=== PATIENT | male | born 1950 ===

== ENCOUNTER → 2018-04-13 | Outpatient (CLI) | payer MEDICARE, OTHER ==
[~2018-04-13] MED LIST: CALGLU500 PO; INSUASPI SC; INSULANI SC; METO50 PO; RISE35 PO; SULF500A PO; SULTRISS PO; TACR1 PO; [UNRECOGNIZED DRUG - OTHER]
[2018-04-13 11:26] LABS: Source, Urine Clean Catch
[2018-04-13 13:03] LABS: Appearance, Urine Clear (Clear); Bilirubin, Urine Neg (Neg); Blood, Urine 1+ (Neg); Color, Urine Yellow (P-Yellow); Glucose Qualitative, Urine Neg (Neg); Ketones, Urine Neg (Neg); Leukocyte Esterase, Urine Neg (Neg); Nitrite, Urine Neg (Neg); Protein, Urine 2+ (Neg); Urobilinogen, Urine NORM (Normal)
[2018-04-13 13:53] LABS: Bacteria Not Seen /hpf; Red Blood Cells, Urine 0-2 /hpf (0-2); Squamous Epithelial Cells Not Seen /hpf (Few); White Blood Cells, Urine Not Seen /hpf (0-5)
== END ==
LOC: LAB 11:25 → LAB SHORT 11:25
PROVIDERS: Urology
DX: R35.0 Frequency of micturition (principal)
CPT/HCPCS: 81001; 87086

== ENCOUNTER 2019-01-08 18:27 | Inpatient (IN) | payer MEDICARE, OTHER ==
[~2019-01-08] VITALS: Ht 175.3 cm; Wt 92.5 kg
[~2019-01-08 18:27] MED LIST changes: -INSUASPI SC; -INSULANI SC; +INSULANPEN SC; +METO25 PO; -METO50 PO; +Myfortic360 MG PO; +Novolog100 UNIT/1 SC; -[UNRECOGNIZED DRUG - OTHER]
[2019-01-08 19:05] LABS: BASOPHILS ABSOLUTE AUTO 0.04 K/mm3 (0.00-0.23); BASOPHILS PERCENT AUTO 1 % (0-2); EOSINOPHILS ABSOLUTE AUTO 0.05 K/mm3 (0.00-0.68); EOSINOPHILS PERCENT AUTO 1 % (0-6); Hematocrit 42.4 % (37.0-53.0); Hemoglobin 13.5 g/dL (13.5-17.5); IMMATURE GRAN ABSOLUTE AUTO 0.03 K/mm3 (0.00-0.10); IMMATURE GRAN PERCENT AUTO 1 % (0-1); LYMPHOCYTES ABSOLUTE AUTO 0.81 K/mm3 (0.84-5.20); LYMPHOCYTES PERCENT AUTO 14 % (21-46); MONOCYTES ABSOLUTE AUTO 0.32 K/mm3 (0.16-1.47); MONOCYTES PERCENT AUTO 6 % (4-13); Mean Corpuscular HGB 30.7 pg (26.0-34.0); Mean Corpuscular HGB Conc 31.8 g/dL (31.5-36.5); Mean Corpuscular Volume 96 fL (80-100); Mean Platelet Volume 11.8 fL (9.1-12.4); NEUTROPHILS ABSOLUTE AUTO 4.54 K/mm3 (1.96-9.15); NEUTROPHILS PERCENT AUTO 78 % (41-73); Platelet Count 132 K/mm3 (150-400); RDW Coefficient Variation 13.2 % (11.7-14.2); RDW Standard Deviation 47.3 fL (35.1-46.3); White Blood Cell Count 5.79 K/mm3 (4.00-11.30)
[2019-01-08 19:19] LABS: Alanine Aminotransfer (ALT/SGP 19 U/L (12-78); Albumin, Blood 3.5 g/dL (3.4-5.0); Alk Phos 82 U/L (50-136); Anion Gap 4 mmol/L (6-16); Aspartate Aminotrans (AST/SGOT 22 U/L (12-37); Bilirubin, Total 0.4 mg/dL (0.1-1.0); Blood Urea Nitrogen 28 mg/dL (8-24); Bun/Creatinine Ratio 26.9 (12.0-20.0); CO2, Blood 26 mmol/L (21-32); Calcium, Blood 8.9 mg/dL (8.5-10.1); Chloride, Blood 109 mmol/L (98-108); Creatinine, Blood 1.04 mg/dL (0.60-1.20); Globulin, Blood 3.4 g/dL (2.2-4.0); Glomerular Filtration Rate >60 (60-); Glucose, Blood 197 mg/dL (70-99); Potassium, Blood 4.5 mmol/L (3.5-5.5); Sodium, Blood 139 mmol/L (136-145); Total Protein, Blood 6.9 g/dL (6.4-8.2)
[2019-01-08 19:24] LABS: International Normalized Ratio 1.04
[2019-01-08] MEDS ORDERED: LOSA50 PO (19:37)
[2019-01-08] MEDS ORDERED: FISH OIL 1,001000 MG PO (19:38)
[2019-01-08] MEDS ORDERED: TURMERIC 500 M1 EACH PO (19:38)
[2019-01-08 19:50] LABS: Source, Urine Clean Catch
[2019-01-08 19:54] LABS: Bilirubin, Urine Neg (Neg); Blood, Urine 1+ (Neg); Glucose Qualitative, Urine Neg (Neg); Ketones, Urine Neg (Neg); Leukocyte Esterase, Urine Neg (Neg); Nitrite, Urine Neg (Neg); Protein, Urine 3+ (Neg); Urobilinogen, Urine NORM (Normal)
[2019-01-08 19:57] LABS: Appearance, Urine Clear (Clear); Color, Urine Yellow (P-Yellow)
[2019-01-08 20:02] LABS: Bacteria Few /hpf; Red Blood Cells, Urine 0-2 /hpf (0-2); Squamous Epithelial Cells Rare /hpf (Few); White Blood Cells, Urine 0-2 /hpf (0-5)
[2019-01-08 22:30] LABS: Free Thyroxine 1.07 ng/dL (0.70-1.60)
[2019-01-08 22:33] LABS: Thyroid Stimulating Hormone 0.924 uIU/mL (0.360-4.800)
[2019-01-08 23:33] LABS: Source, Urine Clean Catch
[2019-01-08 23:37] LABS: Appearance, Urine Clear (Clear); Bilirubin, Urine Neg (Neg); Blood, Urine Neg (Neg); Color, Urine Yellow (P-Yellow); Glucose Qualitative, Urine Neg (Neg); Ketones, Urine Neg (Neg); Leukocyte Esterase, Urine Neg (Neg); Nitrite, Urine Neg (Neg); Protein, Urine 2+ (Neg); Urobilinogen, Urine NORM (Normal); pH, Urine 6.5 (5.0-8.0)
[2019-01-08 23:43] LABS: Bacteria Mod /hpf; Red Blood Cells, Urine 0-2 /hpf (0-2); Squamous Epithelial Cells Not Seen /hpf (Few); White Blood Cells, Urine 0-2 /hpf (0-5)
[2019-01-08] MEDS ORDERED: VITAMIN D34000 UNIT PO (23:46)
--- NOTE | 2019-01-09 00:26 | NUR ---
2200: RTOOK REPORT AND PATIENT ARRIVED TO FLOOR, PATIENT ABLE TO STAND AND TAKE A FEW STEPS WITH A FWW AND X2 ASSIST BUT IN A WEAKEND STATE. PT VOIDED 250 HAZY YELLOW URINE AND SAMPLE SENT TO LAB FOR CX. POC FSBS = 159; PER PATIENT HE DOESNT TAKE SSI FOR THAT NUMBER AT HOME. PT ON REGULAR DIET PER ORDER AND WAS GIVEN 1/2 SANDWICH AND WATER. IVF STARTED. ASSESSMENTS COMPLETED 0030: SPOKE TO REGARDING HOME MED LIST FOR UPDATED ORDERS.
[2019-01-09 05:01] LABS: Hematocrit 41.1 % (37.0-53.0); Mean Corpuscular HGB 30.3 pg (26.0-34.0); Mean Corpuscular HGB Conc 31.6 g/dL (31.5-36.5); Mean Corpuscular Volume 96 fL (80-100); Mean Platelet Volume 11.6 fL (9.1-12.4); Platelet Count 121 K/mm3 (150-400); RDW Coefficient Variation 13.2 % (11.7-14.2); Red Blood Cell Count 4.29 M/mm3 (4.30-5.90); White Blood Cell Count 5.13 K/mm3 (4.00-11.30)
[2019-01-09 05:47] LABS: Alanine Aminotransfer (ALT/SGP 18 U/L (12-78); Albumin, Blood 3.2 g/dL (3.4-5.0); Albumin/Globulin Ratio 1.1 (0.8-1.8); Alk Phos 70 U/L (50-136); Anion Gap 6 mmol/L (6-16); Aspartate Aminotrans (AST/SGOT 15 U/L (12-37); Bilirubin, Total 0.4 mg/dL (0.1-1.0); Blood Urea Nitrogen 25 mg/dL (8-24); Bun/Creatinine Ratio 25.2 (12.0-20.0); CO2, Blood 25 mmol/L (21-32); Calcium, Blood 8.6 mg/dL (8.5-10.1); Chloride, Blood 112 mmol/L (98-108); Creatinine, Blood 0.99 mg/dL (0.60-1.20); Globulin, Blood 2.8 g/dL (2.2-4.0); Glomerular Filtration Rate >60 (60-); Glucose, Blood 144 mg/dL (70-99); Sodium, Blood 143 mmol/L (136-145)
--- NOTE | 2019-01-09 18:17 | NUR ---
SHIFT SUMMARY- PT A/O X4, SLOW TO RESPOND AT TIMES. LS CLEAR, ON RA. CPAP AT HS. TELE SB 40-50'S DR ROJO NOTIFIED AND METOPROLOL DC'D. PT WITH NOTED RIGHT SIDE WEAKNESS, PT ABLE TO LIFT ARM AND LEG BUT NOTED WEAKNESS AND RIGHT FACIAL DROOP. 1 ASSIST WITH FWW UP TO CHAIR. PT AWAITING SNF UPON D/C. NO OTHER ACUTE CHANGES THIS SHIFT.
--- NOTE | 2019-01-09 23:54 | NUR ---
SPOKE TO DR MACE REPORTED PER PCU TELEMETRY PT HAD A 15 SEC RUN OF IDIO-VENTRIULAR RYTHEMS, PT SOUNDED IRRREGULAR DURING ASSESSMENT BUT ASYMPTOMATIC. NO NEW ORDERS AT THIS TIME.BENNY HOOD TO MONITOR.
--- NOTE | 2019-01-10 00:50 | NUR ---
3RD RUN 17 SEC OF IDIO-VENTRICULAR RYTHM. PT REMAINS ASYMPTOMATIC. WILL CONTINUE TO MONITOR
--- NOTE | 2019-01-10 02:51 | NUR ---
0130: PER CHARGE CALLED [facility] TO REPORT 3RD RUN OF IDIO-VENTRICULAR RYTHM. RECVD ORDER TO MOVE PT TO PCU. RECVDD CALL FROM INSIDE SALES RECRUITER STATING IF PATIENT IS VITALLY STABLE PT DOESNT NEED TO BE MOVED AND SAID I SHOULD CALL DR MACE BACK. DID SO. ORDER REMAINS TO MOVE PATIENT TO PCU.
--- NOTE | 2019-01-10 03:08 | NUR ---
REPORT GIVEN TO PCU NURSE AND PT LEFT THE FLOOR
--- NOTE | 2019-01-10 05:01 | NUR ---
END OF SHIFT SUMMARY RECEIVED PT FROM MEDICAL FLOOR. PT TRANSFERRED DUE TO BRADYCARDIA AND PERIODS OF IDIOVENTRICULAR RHTYHM. PT HAS BEEN ASYMPTOMATIC DURING THESE PERIODS PER REPORT AND PER THIS RN'S OBSERVATIONS. BP STABLE. PT ARRIVED TO UNIT VIA HOSPITAL BED. PT AXO BUT SLOW TO RESPOND. R SIDED WEAKNESS WIOTH SOME R SIDED FACIAL DROOP NOTED. INTERLINE CLERK WEAK ON R SIDE BUT STILL STRONGER THAN ANTICIPATED. MOVES ALL EXTREMITIES WITH MOTOR/FINE CONTROL. GLORIA. PT ABLE TO EXPRESS NEEDS. TELEMONITOTING IN PLACE. CALL LIGHT WOTHIN REACH. VSS TAKEN. ASSESMENT CHARTED. BED ALARM IN PLACE. WILL CONTINUE TO MONITOR UNTIL SHIFT CHANGE.
--- NOTE | 2019-01-10 10:04 | NUR ---
Dr. Walter was here to see the pateint. Consent form was signed by the physician,; Dr. Walter states that the pt gave his verbal consent for a pacemaker insertion.
--- NOTE | 2019-01-10 15:38 | NUR ---
The pt was OOB three times this morning by lunchtime. He seems very motivated to do his activity as independently as possible, with staff supervision. His is requesting a shower for him today; agreed to wait until after lunch as he was rather fatigued after this morning's activity of sittin ginthe chair three times.
--- NOTE | 2019-01-10 16:28 | NUR ---
Extensive conversation with Matheus, his , and 2 family friends regarding the pt's abnormal rhythm. Education given regarding basic electrical activity of the heart, normal, and the pt's abnormal. Explained reason for pacemaker, and answered questions. They are waiting to talk with the [facility] entry level sales representative regarding pt's placement into rehab following this admission for CVA recovery.
--- NOTE | 2019-01-10 21:53 | NUR ---
PCU NIGHTSHIFT ASSUMED CARE OF PT APPROX. 1900. AT THIS TIME PT WAS UP IN SHOWER WITH ASSISTANCE OF PEER STAFF. PT RETURNED TO BED SHORTLY AFTER START OF SHIFT, WITH ONE STAFF MEMBER AND USE OF WALKER AND GAIT BELT. PT A&OX4. ASSESSMENT COMPLETED. VITAL SIGNS STABLE. PT HEART RHYTHM NORMAL SINUS IN 60'S. RIGHT SIDED WEAKNESS NOTED. SLIGHT DROOP NOTED WHEN THE PT SMILES. PT SLOW TO RESPOND BUT ANSWER ALL QUESTIONS APPROPRIATELY. PT IN BED AT THIS TIME. BED IN LOW POSITION, CALL LIGHT IN REACH OF LEFT HAND AND PT DENIES ANY NEEDS. WILL CONTINUE TO MONITOR.
--- NOTE | 2019-01-11 06:19 | NUR ---
SHIFT SUMMARY PT PLEASANT, COOPERATIVE AND USES CALL LIGHT APPROPRIATELY. PT REMAINS A&OX4, WHILE AWAKE. PT VITAL SIGNS REMAIN STABLE. HEART RHYTHM REMAINS SINUS RHYTHM IN 60'S. NO CHANGES NOTED T/O ON MONITORS. PT ABLE TO SLEEP MOST OF SHIFT. PT WORE CPAP ALL NIGHT AND TOLERATED WELL. PT SLEEPING AT THIS TIME. BED IN LOW POSITION, CALL LIGHT IN REACH AND PT DENIES ANY NEEDS. WILL CONTINUE TO MONITOR UNTIL HANDOFF TO DAYSHIFT RN.
--- NOTE | 2019-01-11 09:47 | NUR ---
Received the patient from the [facility]. Dressing on the left chest wall is a white rectangular adhesive dressing which Robert states today is the first time he has seen it used. The dressing is clean, dry and intact. No swelling, redness, drainage, hematoma, bleeding noted. The pt initially had some nausea upon arrival, no vomiting, but this quickly resolved and he is asking for food and drink. His is at the bedside. Vital signs are noted stable. Sling was applied to the left arm, and the instructions were given to the patient and his regarding activity restrictions of the left arm.
--- NOTE | 2019-01-11 13:08 | NUR ---
LEFT CHEST WALL DRESSING IS INTACT, SMALL AMOUNT OF BRUISING NOTED LATERALLY AND INFERIORLY TO THE DRESSING. sMALL AMOUNT OF SWELLING NOTED WELL. VITAL SIGNS ARE STABLE. THE PT WAS MEDICATED FOR MODERATE PAIN IN THE SURGICAL SITE.
--- NOTE | 2019-01-11 13:37 | NUR ---
Call from Dr. Walter regarding results of chest xray. Read the impression over the phone to the doctor from the imaging report.
--- NOTE | 2019-01-11 18:13 | NUR ---
Call to Shagufta Elder, pt's , to notify her that the patient will be moved to room 228 this evening.
--- NOTE | 2019-01-11 20:38 | NUR ---
PT ARRIVED TO ROOM TX FROM PCU 12. PT A/O, FAMILY AT BEDSIDE. PT ORIENTED TO ROOM AND CALL LIGHT. PT VSS, NO DISTRESS NOTED. WILL CONT TO MONITOR.
--- NOTE | 2019-01-12 06:15 | NUR ---
POD 1 S/P PACER PLACEMENT. PT VSS T/O NIGHT, HR SINUS 60'S PER TELE MONITOR. PT HAD NO C/O CP/PRESSURE. DRESSING CDI. PT A/O, SPEECH MORE SLURRED WHEN PT IS TIRED. RUE MORE PAINFUL IN HAND THIS AM. ARM ELEVATED W/ICE APPLIED FOR COMFORT. PT IS SHIFTING SELF IN BED, IS DOING ROM EXERCISES INDEP. LUE IN SLING, PT MAINTAINING MOBILITY RESTRICTIONS. PT SWALLOWING W/O DIFFICULTY, IS USING URINAL TO VOID. PT AND VERBALIZED PREFERENCE TO [facility]. WILL CONT TO MONITOR UNTIL REP GIVEN TO ONCOMING RN.
--- NOTE | 2019-01-12 13:05 | NUR ---
REPORT CALLED TO EMMA MATTHEWS AT [facility] AT THIS TIME. DISCHARGE PACKET IS IN PT CUBBY. WILL AWAIT TRANSPORT
--- NOTE | 2019-01-12 16:04 | NUR ---
DISCHARGE: TRANSPORT FROM [facility] ARRIVED. PT TRANSFERED TO WHEELCHAIR WITH 2 ASSIST, STAND AND PIVOT. MEDS SENT WITH PT, DISCHARGE PACKET GIVEN TO TRANSPORTER. PT LEFT UNIT FOR [facility] AT ABOUT 1330 ACCOMPANIED BY TRANSPORTER AND .
== END 2019-01-12 13:37 | DRG 41 ==
LOC: ER 18:27 → MEDS 18:28 → PCU 01-09 11:44 → SURS 01-09 11:44 → MEDS 01-09 11:46 → PCU 01-10 03:10 → SURS 01-11 20:20
PROVIDERS: Emergency Medicine; ADMIT Internal Medicine
PROC: 0JH606Z Insertion of Pacemaker, Dual Chamber into Chest Subcutaneous Tissue and Fascia, Open Approach (ICD-10-PCS; principal; 2019-01-11)
PROC: 02H63JZ Insertion of Pacemaker Lead into Right Atrium, Percutaneous Approach (ICD-10-PCS; 2019-01-11)
PROC: 02HK3JZ Insertion of Pacemaker Lead into Right Ventricle, Percutaneous Approach (ICD-10-PCS; 2019-01-11)
DX: I63.512 Cerebral infarction due to unspecified occlusion or stenosis of left middle cerebral artery (principal); Z94.4 Liver transplant status; K51.90 Ulcerative colitis, unspecified, without complications; G81.91 Hemiplegia, unspecified affecting right dominant side; E11.22 Type 2 diabetes mellitus with diabetic chronic kidney disease; E78.5 Hyperlipidemia, unspecified; Z79.4 Long term (current) use of insulin; I12.9 Hypertensive chronic kidney disease with stage 1 through stage 4 chronic kidney disease, or unspecified chronic kidney disease; E86.0 Dehydration; R47.01 Aphasia; K74.3 Primary biliary cirrhosis; I25.10 Atherosclerotic heart disease of native coronary artery without angina pectoris; G47.33 Obstructive sleep apnea (adult) (pediatric); E66.9 Obesity, unspecified; Z68.30 Body mass index [BMI] 30.0-30.9, adult; I44.39 Other atrioventricular block; Z79.82 Long term (current) use of aspirin; Z79.02 Long term (current) use of antithrombotics/antiplatelets; N18.9 Chronic kidney disease, unspecified
CPT/HCPCS: 33208; 36415; 70450; 70496; 70498; 71045; 71046; 80053; 81001; 82947; 84439; 84443; 85025; 85027; 85610; 87086; 93005; 93010; 93306; 94762; 96360; 96361; 96372; 97110; 97112; 97116; 97162; 97166; 97530; 97535; 99152; 99153; 99285-25; A9270-GY; C1785; C1898; G0378; J0690; J1644; J1650; J2250; J3010; J7030; J7040; J7507; Q9967